=== PATIENT | male | born 1970 | race Caucasian/White ===

== ENCOUNTER 2017-02-22 13:44 | Outpatient (CLI) | payer BC | END 2017-02-22 13:45 | disposition home or self-care (01) | LOC: SC 13:44 | PROVIDERS: ATTEND Internal Medicine Pulmonary Disease | DX: G47.10 Hypersomnia, unspecified (principal); G47.8 Other sleep disorders; R06.83 Snoring | CPT/HCPCS: 99203; 99212 ==

== ENCOUNTER 2017-03-30 13:56 | Outpatient (CLI) | payer BC | END 2017-03-30 13:57 | disposition home or self-care (01) | LOC: SC 13:56 | PROVIDERS: ATTEND Nurse Practitioner Family | DX: G47.33 Obstructive sleep apnea (adult) (pediatric) (principal) | CPT/HCPCS: 99212; 99214 ==

== ENCOUNTER 2017-05-23 15:18 | Outpatient (CLI) | payer BC | END 2017-05-23 15:19 | disposition home or self-care (01) | LOC: SC 15:18 | PROVIDERS: ATTEND Nurse Practitioner Family | DX: G47.33 Obstructive sleep apnea (adult) (pediatric) (principal) | CPT/HCPCS: 99212; 99214 ==

== ENCOUNTER 2017-06-20 15:51 | Outpatient (CLI) | payer BC | END 2017-06-20 15:52 | disposition home or self-care (01) | LOC: SC 15:51 | PROVIDERS: ATTEND Nurse Practitioner Family | DX: G47.33 Obstructive sleep apnea (adult) (pediatric) (principal) | CPT/HCPCS: 99212; 99214 ==

== ENCOUNTER 2017-07-07 08:47 | Outpatient (CLI) | payer BC | END 2017-07-07 08:48 | disposition home or self-care (01) | LOC: SC 08:47 | PROVIDERS: ATTEND Nurse Practitioner Family | DX: G47.33 Obstructive sleep apnea (adult) (pediatric) (principal) | CPT/HCPCS: 99212; 99214 ==